=== PATIENT | male | born 1945 | race Caucasian/White ===

== ENCOUNTER → 2018-11-06 | Day surgery (SDC) | payer MEDICARE, OTHER ==
[2018-11-04 11:15] LABS: BASOPHILS # (AUTO) 0.1 (0.0-0.1); BASOPHILS % 0.8 % (0.0-1.0); EOSINOPHILS # (AUTO) 0.4 (0.0-0.4); EOSINOPHILS % 5.2 % (0.0-6.0); HEMATOCRIT 40.6 % (38.2-49.6); HEMOGLOBIN 13.2 g/dL (14.0-18.0); LYMPHOCYTES # (AUTO) 1.9 (1.0-3.2); LYMPHOCYTES % 25.6 % (18.0-39.1); MEAN CORPUSCULAR HEMOGLOBIN 30.8 pg (28-32); MEAN CORPUSCULAR HGB CONC 32.5 g/dL (31-35); MEAN CORPUSCULAR VOLUME 94.9 fL (81-99); MONOCYTES # (AUTO) 0.9 (0.2-0.8); MONOCYTES % 12.2 % (4.4-11.3); NEUTROPHILS # (AUTO) 4.1 (2.1-6.9); NEUTROPHILS % 55.4 % (38.7-80.0); PLATELET COUNT 215 x10e3/uL (140-360); RED BLOOD COUNT 4.28 x10e6/uL (4.3-5.7); RED CELL DISTRIBUTION WIDTH 12.6 % (11.7-14.4)
--- NOTE | 2018-11-04 12:22 | Diagnostic Imaging Report ---
EXAMINATION: CHEST 2 VIEWS INDICATION: Pre-admit. COMPARISON: None FINDINGS: TUBES and LINES: None. LUNGS: Lungs are well inflated. There is no evidence of pneumonia or pulmonary edema. Mild patchy bibasilar atelectasis. PLEURA: No pleural effusion or pneumothorax. HEART AND MEDIASTINUM: The cardiomediastinal silhouette is unremarkable. BONES AND SOFT TISSUES: No acute osseous abnormality. UPPER ABDOMEN: No free air under the diaphragm. IMPRESSION: No acute radiographic abnormality. Signed by: Dr. Blane Machado MD on 11/04/2018 12:19 PM
[~2018-11-06] MED LIST: ANDROGEL2.5 GM; ASPIRIN81 MG; ATENOLOL50 MG; BELLADONNA/OPIUM 60 MG SUPP PR ONE; CBD TINCTURE; CEFTRIAXONE SOD 1 GM/NS 50 ML 50 ML IV ONE; COLLAGEN; DEXAMETHASONE SOD PHOS INJ 4 MG/ML VIAL ONE; FENTANYL CITRATE/PF 100MCG/2 ML INJ ONE; FLAX SEED OIL; FLOMAX0.4 MG PO; GENTAMICIN 80MG/NS 100 ML 200 ML IV ONE; GLUCOSAMINE &1 EAC1; IOPAMIDOL 610MG/1ML 300 MG/ML VIAL IV ONE; L-ARGININE1000 MG; LIDOCAINE HCL 2% LOCAL INJ 5 ML SDV VIAL INJ ONE; LIVALO1 MG; LOSARTAN POTASS25 MG; MIDAZOLAM HCL 2 MG/2 ML VIAL ONE; ONDANSETRON HCL INJ 2MG/ML 2ML 2 MG/ML VIAL ONE; PROPOFOL IV EMULSION 10 MG/ML 20 ML VIAL ONE; SEVOFLURANE INHAL SOLN 250 ML PEN BTL ONE; TURMERIC1 GM; VITAMIN D34000 UNIT; VITAMIN E400 UNI1; ZINC
--- OUTSIDE RECORDS SUMMARY | 2018-11-06 08:11 | XMS REPORT | Summary of Care ---
Author Author Arie Whitley, Selena [facility] Unknown Address Unknown Phone Unavailable Care Team Providers Care Electronic Heat Seal Operator Name Role Phone AYAN Groves, JOSE Unavailable Unavailable AYAN COEHLO NH, JOSE COCHRAN Unavailable Unavailable Unavailable Unavailable Functional Status Name Dates Details Functional status health issues are not documented Status: Name Dates Details Cognitive status health issues are not documented Status: Problems Name Dates Details Influenza vaccine needed (V04.81, Z23) Status: Active Need for pneumococcal vaccine (V03.82, Z23) Status: Active Pre-procedure lab exam (V72.63, Z01.812) Status: Active BMI 38.0-38.9,adult (V85.38, Z68.38) Status: Active Advance directive discussed with patient (V65.49, Z71.89) Status: Active Abnormal stress test (794.39, R94.39) Status: Active Screening for hypothyroidism (V77.0, Z13.29) Status: Active Adverse reaction to HMG-CoA reductase inhibitor, initial encounter Status: Active Pain in both lower extremities (729.5, M79.604) Status: Active Halitosis (784.99, R19.6) Status: Active Xerostomia (527.7, R68.2) Status: Active Bilateral knee pain (719.46, M25.561) Status: Active Edema of left lower extremity (782.3, R60.0) Status: Active MARTY on CPAP (327.23, G47.33) Status: Active Immunity status testing (V72.61, Z01.84) Status: Active Myalgia (729.1, M79.1) Status: Active Anemia due to other cause, not classified (285.8, D64.89) Status: Active Iron deficiency (280.9, E61.1) Status: Active Hypertension, well controlled (401.9, I10) Status: Active On statin therapy (V58.69, Z79.899) Status: Active Hyperlipidemia (272.4, E78.5) Status: Active Osteoarthritis of both knees, unspecified osteoarthritis type (715.96, M17.0) Status: Active Gastritis, acute (535.00, K29.00) Status: Active Hiatal hernia (553.3, K44.9) Status: Active Need for shingles vaccine (V04.89, Z23) Status: Active Encounter for monitoring statin therapy (V58.83, Z51.81) Status: Active Medications Name Dates Details Atenolol 25 MG Oral Tablet Take 1 tablet twice a day Quantity: 180 JOSE BOTELLO M.D. * Start : 18-Sep-2013 Active Flomax 0.4 MG Oral Capsule one daliy * Refills: 0 Active AndroGel GEL three pumps daily * Refills: 0 Active Aspirin 81 MG TABS TAKE 1 TABLET DAILY. * Refills: 0 Active Vitamin E 400 UNIT Oral Tablet TAKE 1 TABLET DAILY. * Refills: 0 Active Vitamin D3 1000 UNIT Oral Tablet TAKE 1 TABLET DAILY. * Refills: 0 Active CPAP Continuous Positive Airway Pressure * Refills: 0 Active Glucosamine Chond Complex/MSM Oral Tablet Take one tablet twice daily * Refills: 0 Active L-Arginine 1000 MG Oral Tablet Take one tablet twice daily * Refills: 0 Active Multivitamins Oral Capsule TAKE 1 CAPSULE DAILY. * Refills: 0 Active Flaxseed Oil 1200 MG Oral Capsule TAKE 1 CAPSULE TWICE DAILY * Refills: 0 * Start : 30-Nov-2015 Active Zinc CAPS * Refills: 0 Active Livalo 1 MG Oral Tablet TAKE 1 TABLET BY MOUTH EVERY DAY * Quantity: 84 Refills: 0 JOSE BOTELLO M.D. * Start : 10-Jul-2016 Active Ferrous Sulfate 325 (65 Fe) MG Oral Tablet TAKE 1 TABLET DAILY * Refills: 0 Active Diclofenac Sodium 1.5 % Transdermal Solution Apply 40 drops to affected knee(s) QID * Quantity: 1 Refills: 1 JOSE BOTELLO M.D. * Start : 12-Jul-2017 Active 150 ML Bottle Losartan Potassium 25 MG Oral Tablet TAKE 1 TABLET DAILY * Quantity: 90 Refills: 0 JOSE BOTELLO M.D. * Start : 13-May-2018 Active Shingrix 50 MCG Intramuscular Suspension Reconstituted INJECT 0.5 ML IM, please administer vaccine series per protocol * Quantity: 1 Refills: 1 JOSE BOTELLO M.D. 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) Status: Resolved History of essential hypertension (V12.59, Z86.79) Status: Resolved History of hyperlipidemia (V12.29, Z86.39) Status: Resolved History of sleep apnea (V13.89, Z86.69) Status: Resolved 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, E29.1) Status: Resolved History of Vitamin D insufficiency (268.9, E55.9) Status: Resolved Procedures Procedure Dates Details [QLH] CBC (INCLUDES DIFF/PLT) Date: 25-Apr-2018 [QH] LIPID PANEL WITH REFLEX TO DIRECT LDL Date: 25-Apr-2018 [QLH] TSH, 3RD GENERATION W/REFLEX TO FT4 Date: 25-Apr-2018 History of Appendectomy Completed Immunization Name Dates Details Td on: 12-Oct-2008 Hepatitis A on: 11-Oct-2009 Pneumococcal polysaccharide vaccine, 23 valent on: 13-Apr-2010 Hepatitis A on: 25-May-2010 Influenza on: 23-Apr-2012 Fluzone INJ Lot #: [id number] on: 25-Apr-2013 Influenza Lot #: [id number] on: 04-Jun-2014 Prevnar 13 Intramuscular Suspension Lot #: [id number] on: 17-Dec-2014 Influenza on: 22-Apr-2015 Influenza Comments: 04/12/2016 @ [facility] Fluzone INJ on: 22-Apr-2017 Fluzone Quadrivalent 0.5 ML Intramuscular Suspension Lot #: [id number] on: 25-Apr-2018 Family History Name Dates Details Family history of Hypertension (V17.49) Status: Active Family history of Arthritis (V17.7) Status: Active Name Dates Details Family history of Arthritis (V17.7) Status: Active Social History Name Dates Details - Status: Name Dates Details Former smoker Vital Signs Date Test Result Details [id number] BP Systolic 110 mm[Hg] Status: Comments: Location: LUE; Position: Sitting BP Diastolic 65 mm[Hg] Status: Comments: Location: LUE; Position: Sitting Physical Findings 0 Status: Comments: PHQ-9 Adult Depression Screening Height 66 in Status: Weight 228.25 lb Status: Body Mass Index Calculated 36.84 kg/m2 Status: Body Surface Area Calculated 2.12 m2 Status: Temperature 98.4 f Status: Comments: Method: Temporal Heart Rate 69 /min Status: Respiration Rate 16 /min Status: Physical Findings 0 Status: Comments: Pain Scale Physical Findings 0 Status: Comments: Alcohol Screen - How many times in the past yr have you had 5 (for M) or 4 (for F) or 4 (for all > 65yrs) or more drinks in a day? Results Date Description Value Details Results not documented Plan of Care Name Dates Details Planned Observations Planned Goals not documented Planned Encounters Appointment; JOSE BOTELLO M.D. On: 09-Jul-2018 9:30 Interventions Provided Medication Changes* Losartan Potassium 25 MG Oral Tablet - Renew Instructions Name Dates Details Instructions not documented Encounters Appointment; JOSE BOTELLO M.D. Encounter Diagnosis: Problem not documented On: 23-Jun-2016 10:15 Appointment; JOSE BOTELLO M.D. Encounter Diagnosis: Problem not documented On: 10-Jul-2016 8:45 Appointment; JOSE BOTELLO M.D. Encounter Diagnosis: Problem not documented On: 15-Sep-2016 9:30 Appointment; JOSE BOTELLO M.D. Encounter Diagnosis: Problem not documented On: 12-Jan-2017 15:15 Appointment; JOSE BOTELLO M.D. Encounter Diagnosis: Problem not documented On: 03-Jul-2017 11:00 Appointment; JOSE BOTELLO M.D. Encounter Diagnosis: Problem not documented On: 25-Apr-2018 15:15 Appointment; JOSE BOTELLO M.D. Encounter Diagnosis: Problem not documented On: 25-Apr-2018 15:15
--- OUTSIDE RECORDS SUMMARY | 2018-11-06 08:11 | XMS REPORT ---
[facility] Address Unknown Phone Unavailable Care Team Providers Care Rn Delivery Name Role Phone AGUILA MONTGOMERY Unavailable Unavailable Problems This patient has no known problems. Allergies, Adverse Reactions, Alerts This patient has no known allergies or adverse reactions. Medications This patient has no known medications. Results Test Description Test Time Test Comments Text Results Atomic Results Result Comments CHEST 2 VIEWS 2018-11-04 12:17:00 [facility] [address] [address] Patient Name: MARQUEZ CHA MR #: [id number] : 1945 Age/Sex: 72/M Req #: [id number] Adm Physician: Ordered by: AGUILA MONTGOMERY MD Report #: [id number] Location: OR Room/Bed: Procedure: [id number] DX/CHEST 2 VIEWS Exam Date: 11/04/18 Exam Time: 1050 REPORT STATUS: Signed EXAMINATION: CHEST 2 VIEWS INDICATION: Pre-admit. COMPARISON: None FINDINGS: TUBES and LINES: None. LUNGS: Lungs are well inflated. There is no evidence of pneumonia or pulmonary edema. Mild patchy bibasilar atelectasis. PLEURA: No pleural effusion or pneumothorax. HEART AND MEDIASTINUM: The cardiomediastinal silhouette is unremarkable. BONES AND SOFT TISSUES: No acute osseous abnormality. UPPER ABDOMEN: No free air under the diaphragm. IMPRESSION: No acute radiographic abnormality. Signed by: Dr. Sarah Constantino MD on 11/04/2018 12:19 PM Dictated By: SARAH CONSTANTINO MD 18 Transcribed By: MARIA DEL CARMEN on 11/04/181218 COPY TO: AGUILA MONTGOMERY MD
[2018-11-06 12:35] VITALS: BP 117/64
--- NOTE | 2018-12-04 04:11 | Operative Report ---
DATE OF PROCEDURE: 11/06/2018 SURGEON: Gabriele Saenz MD PREOPERATIVE DIAGNOSES: 1. Obstructive benign prostatic hypertrophy. 2. Incomplete bladder emptying. POSTOPERATIVE DIAGNOSES: 1. Obstructive benign prostatic hypertrophy. 2. Incomplete bladder emptying. OPERATION PERFORMED: 1. Cystourethroscopy with bilateral ureteral catheterization and retrograde ureteropyelography (separately performed for the incomplete bladder emptying). 2. Interpretation of retrograde ureteropyelography. 3. Supervision of fluoroscopy, no radiologist present. 4. Cystourethroscopy with implantation of UroLift implants x4 units. A separate procedure performed for the obstructive benign prostatic hypertrophy. ANESTHESIA: General. COMPLICATIONS: None. CLINICAL SUMMARY: Hans Murphy is a 72-year-old man with obstructive BPH. He has large postvoid residuals of greater than 200 mL. Carefully outweighing the risks, benefits, and alternatives of various modalities of BPH management and elected to proceed. He understands risks of bleeding, infection, injury to adjacent structures, potential need for additional procedures including TURP, and they elected to proceed. OPERATIVE PROCEDURE IN DETAIL: Informed consent was verified. Hans Murphy was properly identified, taken to the operative room, placed on the cystoscopy table in supine position. Anesthesia was uneventfully begun. The patient was then carefully gently repositioned in the dorsal lithotomy position with all pressure points well padded. His genitalia were prepared and draped in usual sterile fashion. A 22.5-British cystoscope sheath with the visual obturator in place was atraumatically inserted into the patient's urethra. It was guided down relatively to remarkable distal urethra through some bulbar tortuosity through the normal sphincteric region into the patient's prostate bed. The prostate bed was significant for bilobar prostatic hypertrophy with kissing lateral lobes and some extra nodularity of the left lateral lobe near the verumontanum. Went to the patient's bladder and drained it. Panendoscopy revealed grade 1 trabeculations, but no tumors, no stones, no diverticula, normally positioned configured ureteral orifices were identified. An 8-British catheter was used to cannulate each ureter and retrograde ureteropyelograms were performed. Interpretation of retrograde ureteropyelography: Contrast was instilled in retrograde fashion bilaterally. There were no tumors, no stones, and no diverticula. Unobstructed drainage was observed bilaterally fluoroscopically. The cystoscope was withdrawn. Following drainage of the bladder, we introduced the 20-British cystoscope sheath with the visual obturator. We then utilized the UroLift implant system. A total of four UroLift implants were deployed. Two were deployed on either side, approximately 1.5 cm distal to the bladder neck anterolaterally and two more implants were deployed anterolaterally at the level of the verumontanum. This was resulted in continuous anterior channel. The patient's bladder was drained. The cystoscope was withdrawn. Digital rectal examination with placement of a belladonna and opium suppository revealed a 30 g prostate, smooth and nonfunctional without any nodules. The patient was then uneventfully reversed from anesthesia and taken to the recovery room in stable condition. There were no complications to the procedure. He tolerated the procedure well. Expressive postop instructions were given. We will follow the patient up in the office at which point in time, uroflowmetry and bladder ultrasonography will be performed. MD MERRILL Lange/JORGE /[id number]
== END | disposition home or self-care (01) ==
LOC: OR 08:09
PROVIDERS: ATTEND Urology
DX: N40.1 Benign prostatic hyperplasia with lower urinary tract symptoms (principal); R39.14 Feeling of incomplete bladder emptying; N36.8 Other specified disorders of urethra; N32.89 Other specified disorders of bladder; G47.33 Obstructive sleep apnea (adult) (pediatric); I10 Essential (primary) hypertension; E78.00 Pure hypercholesterolemia, unspecified; M19.90 Unspecified osteoarthritis, unspecified site; Z01.810 Encounter for preprocedural cardiovascular examination; Z01.812 Encounter for preprocedural laboratory examination; Z01.811 Encounter for preprocedural respiratory examination; Z79.82 Long term (current) use of aspirin
CPT/HCPCS: 52005; C9740; 36415; 71046; 74420; 85025; 93005; J0696; J1100; J1580; J2001; J2250; J2405; L8699

== ENCOUNTER → 2020-12-22 | Day surgery (SDC) | payer MEDICARE ==
[2020-12-17 10:02] LABS: BASOPHILS # (AUTO) 0.1 (0.0-0.1); EOSINOPHILS # (AUTO) 0.4 (0.0-0.4); EOSINOPHILS % 7.1 % (0.0-6.0); HEMATOCRIT 39.1 % (38.2-49.6); HEMOGLOBIN 12.9 g/dL (14.0-18.0); LYMPHOCYTES # (AUTO) 1.8 (1.0-3.2); LYMPHOCYTES % 29.9 % (18.0-39.1); MEAN CORPUSCULAR HEMOGLOBIN 30.9 pg (28-32); MEAN CORPUSCULAR VOLUME 93.5 fL (81-99); MONOCYTES # (AUTO) 0.8 (0.2-0.8); MONOCYTES % 13.9 % (4.4-11.3); NEUTROPHILS # (AUTO) 2.9 (2.1-6.9); NEUTROPHILS % 47.8 % (38.7-80.0); PLATELET COUNT 200 x10e3/uL (140-360); RED BLOOD COUNT 4.18 x10e6/uL (4.3-5.7); RED CELL DISTRIBUTION WIDTH 12.4 % (11.7-14.4)
[2020-12-17 10:25] LABS: ALANINE AMINOTRANSFERASE 44 IU/L (0-55); ALBUMIN/GLOBULIN RATIO 1.3 (0.8-2.0); ALKALINE PHOSPHATASE 63 IU/L (40-150); ANION GAP 13.9 mmol/L (8-16); BLOOD UREA NITROGEN 15 mg/dL (7-26); BUN/CREATININE RATIO 18 (6-25); CALCIUM 9.4 mg/dL (8.4-10.2); CARBON DIOXIDE 25 mmol/L (22-29); CHLORIDE 106 mmol/L (98-107); CREATININE, SERUM 0.84 mg/dL (0.72-1.25); EST GLOMERULAR FILTRATION RATE > 60 ML/MIN (60-); GLUCOSE 105 mg/dL (74-118); POTASSIUM 3.9 mmol/L (3.5-5.1); SODIUM 141 mmol/L (136-145)
[~2020-12-22] MED LIST changes: -ANDROGEL2.5 GM; +ANDROGEL2.5 GM TOP; -ASPIRIN81 MG; +ASPIRIN81 MG PO; -ATENOLOL50 MG; +ATENOLOL50 MG PO; +B&O 60MG R/S 60 MG SUPP PR ONE; -BELLADONNA/OPIUM 60 MG SUPP PR ONE; +CEFTRIAXONE 1 GM VIAL ONE; -CEFTRIAXONE SOD 1 GM/NS 50 ML 50 ML IV ONE; -COLLAGEN; +COLLAGEN PO; -FENTANYL CITRATE/PF 100MCG/2 ML INJ ONE; -FLAX SEED OIL; +FLAX SEED OIL PO; +GABAPENTIN600 MG PO; +GLYCOPYRROLATE INJ 0.2 MG/ML VIAL ONE; +IOPAMIDOL 300MG/ML 50ML INFUS..BTL IV ONE; -IOPAMIDOL 610MG/1ML 300 MG/ML VIAL IV ONE; -L-ARGININE1000 MG; +L-ARGININE1000 MG PO; -LIVALO1 MG; +LIVALO1 MG PO; -LOSARTAN POTASS25 MG; +LOSARTAN POTASS25 MG PO; -MIDAZOLAM HCL 2 MG/2 ML VIAL ONE; +POVIDONE IODINE 0.05% 0.05 % ML PO ONE; +SODIUM CHLORIDE 0.9% 50ML 50 ML ONE; -TURMERIC1 GM; +TURMERIC1 GM PO; -VITAMIN D34000 UNIT; +VITAMIN D34000 UNIT PO; -VITAMIN E400 UNI1; +VITAMIN E400 UNI1 PO; -ZINC; +ZINC PO
[2020-12-22 10:45] VITALS: BP 139/78
== END | disposition home or self-care (01) ==
LOC: OR 07:13
PROVIDERS: ATTEND Urology
DX: N40.3 Nodular prostate with lower urinary tract symptoms (principal); N13.8 Other obstructive and reflux uropathy; R39.14 Feeling of incomplete bladder emptying; N35.919 Unspecified urethral stricture, male, unspecified site; N32.89 Other specified disorders of bladder; R00.1 Bradycardia, unspecified; G47.33 Obstructive sleep apnea (adult) (pediatric); I45.10 Unspecified right bundle-branch block; I10 Essential (primary) hypertension; M17.0 Bilateral primary osteoarthritis of knee; E78.5 Hyperlipidemia, unspecified; Z01.810 Encounter for preprocedural cardiovascular examination; Z01.812 Encounter for preprocedural laboratory examination; Z01.818 Encounter for other preprocedural examination; Z20.822 Contact with and (suspected) exposure to COVID-19; Z79.82 Long term (current) use of aspirin
CPT/HCPCS: 52005; C9740; 36415; 71046; 74420; 80053; 84152; 84403; 85025; 93005; C1758; J0696; J1100; J1580; J2001; J2405; L8699; U0002